=== PATIENT | male | born 1995 | race Caucasian/White ===

== ENCOUNTER 2017-05-24 19:52 | Emergency (ER) | payer OTHER ==
[~2017-05-24] VITALS: Ht 190.5 cm; Wt 117.9 kg
[~2017-05-24 19:52] MED LIST: ADVAIR; ADVAIR 250-501 EACH INH; ALBUTEROL17 G1 IH; ALBUTEROL17 GM; ALBUTEROL17 GM INH; AMOXICILLIN500 M1 PO; COMBIVENT INH14.7 GM INH; MOTRIN600 MG PO; NO MEDICATIONS; PREDNISONE PO; PREDNISONE10 MG/DOSE PO; PROMETHAZINE D118 ML PO; PROTONIX PO; ZITHROMAX PO; ZITHROMAX1 G/PKT PO
== END 2017-05-24 21:30 | disposition home or self-care (01) ==
LOC: SED 19:52
DX: R21 Rash and other nonspecific skin eruption (principal); T47.1X5A Adverse effect of other antacids and anti-gastric-secretion drugs, initial encounter; J45.909 Unspecified asthma, uncomplicated; F17.200 Nicotine dependence, unspecified, uncomplicated
CPT/HCPCS: 96372; 99283; J1040